=== PATIENT | male | born 1985 | race Caucasian/White ===

== ENCOUNTER 2017-01-26 04:29 | Inpatient (IN) ==
[2017-01-26] MEDS ORDERED: Haloperidol Lactate 5 MG/ML VIAL ONE (04:37)
[2017-01-26] MEDS ORDERED: Haloperidol Lactate 5 MG/ML VIAL IVP ONE (04:43)
[2017-01-26] MEDS ORDERED: *HR* LORazepam 2 MG/ML VIAL IVP ONE (04:45)
--- NOTE | 2017-01-26 04:46 | Emergency Department Note ---
Disposition Clinical Impression: Altered mental status Qualifiers: Altered mental status type: unspecified Qualified Code(s): R41.82 - Altered mental status, unspecified Disposition: Still a Patient Condition: Undetermined Forms: ED Satisfaction Letter Altered Mental Status HPI - General Chief Complaint: ED Altered Mental Status Stated Complaint: combative Time Seen by Provider: 01/26/17 04:36 Source: patient, EMS Mode of arrival: EMS Limitations: altered mental status Nursing Notes Reviewed: Yes Vital Signs Reviewed: Yes - History of Present Illness MD complaint: altered mental status, intoxication, other (combative) 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 Quantities were not discussed.), other ( Patient was reportedly unresponsive. EMS gave 4mg of narcan. Patient became agitated and "Very combative." ) Treatments prior to arrival: EMS treatment/medication (Narcan 4mg), other (accu check 124) Limitations: ROS unobtainable due to patients medical condition Past Medical History - Past Medical History Source: old records reviewed Medical history: Reports: non-contributory Psychiatric history: Reports: other - Social History Smoking Status: Unknown if ever smoked Alcohol use: Reports: unknown Drug use: Reports: opiates, other Physical Exam - General Limitations: altered mental status (agitated and combative) General appearance: alert, appears intoxicated, restraints present - Head Head exam: atraumatic, normocephalic, normal inspection - Eye Eye exam: Present: normal appearance, PERRL. Absent: scleral icterus, conjunctival injection, periorbital swelling - ENT ENT exam: mucous membranes dry - Neck Neck exam: Present: normal inspection, full ROM, trachea midline. Absent: tenderness - Chest Chest inspection: Present: normal inspection, symmetric chest wall rise - Respiratory Respiratory exam: Present: normal lung sounds bilaterally. Absent: respiratory distress - Cardiovascular Cardiovascular exam: Present: regular rate, normal rhythm, normal heart sounds - Abdominal Exam Abdominal exam: Present: soft, Non-Tender. Absent: tenderness, distention, guarding, rebound, rigidity, mass, pulsatile mass - Extremities Exam Extremities exam: Present: normal inspection, full ROM, normal capillary refill. Absent: pedal edema, joint swelling - Expanded Lower Extremity Exam Gait: not tested/not observed - Neurological Exam Neurological exam: Present: alert. Absent: oriented X3 (oriented to person and "Hospital") - Psychiatric Psychiatric exam: Present: agitated, anxious - Skin Skin exam: Present: warm, dry, intact, normal color Course Course Narrative: Patient was brought in by squad after being found unresponsive. It is unclear who called the squad. He was given 4 mg of Narcan and became very agitated and combative. He arrived with handcuffs in place and with two deputy sheriff k9 handler's deputies providing additional restraint. He is agitated and tachycardic but has normal blood pressure and normal oxygen saturation on room air. Patient reportedly took Xanax, gabapentin, and shot up heroin. It is unclear how much or at what time. He is mildly diaphoretic. Core temp is 99. Pupils are 4mm, slowly reactive. He is oriented to person and knows that he is in a hospital. He will answer some questions briefly. He episodically slurs. He was transferred to the ED cot and restraints were applied. He was given Haldol 10mg, ativan 2mg and Benadryl 50mg. Labs and Imaging studies were ordered. Case discussed with Dr. Méndez. He has had face to face time with the patient. - Reevaluation(s) Reevaluation #1: Patient resting quietly. HR 90, sats 98% on room air, BP normal. Time: 05:03 Reevaluation #2: Patient had transient snoring respirations then sat up and began fighting again. This pattern repeated several times. Discussed sedation + intubation with Dr. Méndez. He re-assessed the patient and recommends versed 2mg Q5min until no longer agitated. Patient is on monitor with O2 sat. Time: 05:24 Reevaluation #3: Discussed plan to CT head with Attending. He is in agreement. Patient taken to CT by his nurse and me. Sats remained above 93% on room air. Patient required an additional dose of versed due to agitation. He has had a total of 4mg so far. Time: 05:32 Additional Reevaluation(s): Time is 06:15 Patient care is being transferred to Dr. Méndez. Vital Signs Temperature 99.6 F 01/26/17 04:45 Pulse Rate 129 01/26/17 04:45 Respiratory Rate 24 01/26/17 04:45 Blood Pressure 152/67 01/26/17 04:45 O2 Sat by Pulse Oximetry 99 01/26/17 04:45 Temperature 99.6 F 01/26/17 05:08 Pulse Rate 129 01/26/17 05:08 Respiratory Rate 24 01/26/17 05:08 Blood Pressure 152/67 01/26/17 05:08 O2 Sat by Pulse Oximetry 97 01/26/17 05:08 Oxygen Delivery Oxygen Delivery Room Air Altered Mental Status - Medical Records Medical records reviewed: Yes I reviewed the patient's medical records. - Lab Data Lab results reviewed: Yes I reviewed the patient's lab results. Lab results narrative: Laboratory Last Values WBC 17.0 K/mcL (4.3-11.1) H 01/26/17 04:41 RBC 4.49 M/mcL (4.19-5.50) 01/26/17 04:41 Hgb 13.3 g/dL (12.9-16.9) 01/26/17 04:41 Hct 39.9 % (37.5-50.1) 01/26/17 04:41 MCV 88.9 fL (83.0-100.0) 01/26/17 04:41 MCH 29.6 pg (28.0-33.3) 01/26/17 04:41 MCHC 33.3 g/dL (31.6-35.5) 01/26/17 04:41 RDW 13.3 % (11.5-14.5) 01/26/17 04:41 Plt Count 331 K/mcL (140-400) 01/26/17 04:41 MPV 10.1 fL (9.4-12.4) 01/26/17 04:41 Immature Gran % 0.2 % (0-4) 01/26/17 04:41 Seg Neutrophils % 56.3 % 01/26/17 04:41 Lymphocytes % 32.8 % 01/26/17 04:41 Monocytes % 7.6 % 01/26/17 04:41 Eosinophils % 2.6 % 01/26/17 04:41 Basophils % 0.5 % 01/26/17 04:41 Neutrophils # 9.6 K/mcL (1.6-8.9) H 01/26/17 04:41 Lymphocytes # 5.6 K/mcL (0.6-4.6) H 01/26/17 04:41 Monocytes # 1.3 K/mcL (0.0-1.3) 01/26/17 04:41 Eosinophils # 0.4 K/mcL (0.0-0.6) 01/26/17 04:41 Basophils # 0.1 K/mcL (0.0-0.2) 01/26/17 04:41 Sodium 141 mEq/L (136-145) 01/26/17 04:41 Potassium 3.8 mEq/L (3.5-4.5) 01/26/17 04:41 Chloride 104 mEq/L (98-109) 01/26/17 04:41 Carbon Dioxide 25 mEq/L (19-29) 01/26/17 04:41 BUN 10 mg/dL (8-26) 01/26/17 04:41 Creatinine 0.87 mg/dL (0.72-1.25) 01/26/17 04:41 Est GFR ( Amer) > 60 (> 60) 01/26/17 04:41 Est GFR (Non-Af Amer) > 60 (> 60) 01/26/17 04:41 BUN/Creatinine Ratio 11 (6-26) 01/26/17 04:41 Glucose 105 mg/dL (70-99) H 01/26/17 04:41 Calculated Osmolality 291 (280-300) 01/26/17 04:41 Calcium 8.9 mg/dL (8.6-10.8) 01/26/17 04:41 Total Bilirubin 0.5 mg/dL (0.2-1.2) 01/26/17 04:41 Direct Bilirubin 0.1 mg/dL (0.0-0.5) 01/26/17 04:41 Indirect Bilirubin 0.4 mg/dL (0.0-1.2) 01/26/17 04:41 AST 23 Units/L (5-34) 01/26/17 04:41 ALT 18 Units/L (0-55) 01/26/17 04:41 Alkaline Phosphatase 74 Units/L (38-126) 01/26/17 04:41 Serum Total Protein 7.4 g/dL (6.0-8.3) 01/26/17 04:41 Albumin 3.5 g/dL (3.5-5.0) 01/26/17 04:41 Globulin 3.9 g/dL (2.4-3.5) H 01/26/17 04:41 Albumin/Globulin Ratio 0.9 (1.1-2.2) L 01/26/17 04:41 Urine Color Yellow (Yellow) 01/26/17 04:40 Urine Clarity Clear (Clear) 01/26/17 04:40 Urine pH 7.0 pH Units (5.0-8.0) 01/26/17 04:40 Ur Specific [place] 1.024 (1.010-1.025) 01/26/17 04:40 Urine Protein Negative mg/dL (Neg-Trace) 01/26/17 04:40 Urine Glucose (UA) Normal mg/dL (Normal) 01/26/17 04:40 Urine Ketones Negative mg/dL (Negative) 01/26/17 04:40 Urine Blood Negative (Negative) 01/26/17 04:40 Urine Nitrite Negative (Negative) 01/26/17 04:40 Urine Bilirubin Negative (Negative) 01/26/17 04:40 Urine Urobilinogen Normal mg/dL (Normal) 01/26/17 04:40 Ur Leukocyte Esterase Negative (Negative) 01/26/17 04:40 Salicylates < 5.0 mg/dL (15.0-30.0) L 01/26/17 04:41 Urine Opiates Screen Positive ng/mL (Ezoauo=572) H 01/26/17 04:40 Acetaminophen < 1.0 mcg/mL (10-30) L 01/26/17 04:41 Ur Barbiturates Screen Negative ng/mL (Qmwcyb=467) 01/26/17 04:40 Ur Phencyclidine Scrn Negative ng/mL (Cutoff=25) 01/26/17 04:40 Ur Amphetamines Screen Positive ng/mL (Mgjldi=4624) H 01/26/17 04:40 U Benzodiazepines Scrn Positive ng/mL (Cwbsnu=822) H 01/26/17 04:40 Urine Cocaine Screen Negative ng/mL (Cutoff= 300) 01/26/17 04:40 U Marijuana (THC) Screen Positive ng/mL (Cutoff = 50) H 01/26/17 04:40 Ethyl Alcohol < 10 mg/dL (0-10) 01/26/17 04:41 Result diagrams: 01/26/17 04:41 01/26/17 04:41 Lab Results 01/26/17 01/26/17 01/26/17 Range/Units 04:40 04:40 04:41 WBC 17.0 H (4.3-11.1) K/mcL RBC 4.49 (4.19-5.50) M/mcL Hgb 13.3 (12.9-16.9) g/dL Hct 39.9 (37.5-50.1) % MCV 88.9 (83.0-100.0) fL MCH 29.6 (28.0-33.3) pg MCHC 33.3 (31.6-35.5) g/dL RDW 13.3 (11.5-14.5) % Plt Count 331 (140-400) K/mcL MPV 10.1 (9.4-12.4) fL Immature Gran % 0.2 (0-4) % Seg Neutrophils % 56.3 % Lymphocytes % 32.8 % Monocytes % 7.6 % Eosinophils % 2.6 % Basophils % 0.5 % Neutrophils # 9.6 H (1.6-8.9) K/mcL Lymphocytes # 5.6 H (0.6-4.6) K/mcL Monocytes # 1.3 (0.0-1.3) K/mcL Eosinophils # 0.4 (0.0-0.6) K/mcL Basophils # 0.1 (0.0-0.2) K/mcL Sodium (136-145) mEq/L Potassium (3.5-4.5) mEq/L Chloride (98-109) mEq/L Carbon Dioxide (19-29) mEq/L BUN (8-26) mg/dL Creatinine (0.72-1.25) mg/dL Est GFR ( Amer) (> 60) Est GFR (Non-Af Amer) (> 60) BUN/Creatinine Ratio (6-26) Glucose (70-99) mg/dL Calculated Osmolality (280-300) Calcium (8.6-10.8) mg/dL Total Bilirubin (0.2-1.2) mg/dL Direct Bilirubin (0.0-0.5) mg/dL Indirect Bilirubin (0.0-1.2) mg/dL AST (5-34) Units/L ALT (0-55) Units/L Alkaline Phosphatase (38-126) Units/L Serum Total Protein (6.0-8.3) g/dL Albumin (3.5-5.0) g/dL Globulin (2.4-3.5) g/dL Albumin/Globulin Ratio (1.1-2.2) Urine Color Yellow (Yellow) Urine Clarity Clear (Clear) Urine pH 7.0 (5.0-8.0) pH Units Ur Specific [place] 1.024 (1.010-1.025) Urine Protein Negative (Neg-Trace) mg/dL Urine Glucose (UA) Normal (Normal) mg/dL Urine Ketones Negative (Negative) mg/dL Urine Blood Negative (Negative) Urine Nitrite Negative (Negative) Urine Bilirubin Negative (Negative) Urine Urobilinogen Normal (Normal) mg/dL Ur Leukocyte Esterase Negative (Negative) Salicylates (15.0-30.0) mg/dL Urine Opiates Screen Positive H (Rlxttn=397) ng/mL Acetaminophen (10-30) mcg/mL Ur Barbiturates Screen Negative (Lsgllv=543) ng/mL Ur Phencyclidine Scrn Negative (Cutoff=25) ng/mL Ur Amphetamines Screen Positive H (Ypljqn=6661) ng/mL U Benzodiazepines Scrn Positive H (Ukislz=946) ng/mL Urine Cocaine Screen Negative (Cutoff= 300) ng/mL U Marijuana (THC) Screen Positive H (Cutoff = 50) ng/mL Ethyl Alcohol (0-10) mg/dL 01/26/17 Range/Units 04:41 WBC (4.3-11.1) K/mcL RBC (4.19-5.50) M/mcL Hgb (12.9-16.9) g/dL Hct (37.5-50.1) % MCV (83.0-100.0) fL MCH (28.0-33.3) pg MCHC (31.6-35.5) g/dL RDW (11.5-14.5) % Plt Count (140-400) K/mcL MPV (9.4-12.4) fL Immature Gran % (0-4) % Seg Neutrophils % % Lymphocytes % % Monocytes % % Eosinophils % % Basophils % % Neutrophils # (1.6-8.9) K/mcL Lymphocytes # (0.6-4.6) K/mcL Monocytes # (0.0-1.3) K/mcL Eosinophils # (0.0-0.6) K/mcL Basophils # (0.0-0.2) K/mcL Sodium 141 (136-145) mEq/L Potassium 3.8 (3.5-4.5) mEq/L Chloride 104 (98-109) mEq/L Carbon Dioxide 25 (19-29) mEq/L BUN 10 (8-26) mg/dL Creatinine 0.87 (0.72-1.25) mg/dL Est GFR ( Amer) > 60 (> 60) Est GFR (Non-Af Amer) > 60 (> 60) BUN/Creatinine Ratio 11 (6-26) Glucose 105 H (70-99) mg/dL Calculated Osmolality 291 (280-300) Calcium 8.9 (8.6-10.8) mg/dL Total Bilirubin 0.5 (0.2-1.2) mg/dL Direct Bilirubin 0.1 (0.0-0.5) mg/dL Indirect Bilirubin 0.4 (0.0-1.2) mg/dL AST 23 (5-34) Units/L ALT 18 (0-55) Units/L Alkaline Phosphatase 74 (38-126) Units/L Serum Total Protein 7.4 (6.0-8.3) g/dL Albumin 3.5 (3.5-5.0) g/dL Globulin 3.9 H (2.4-3.5) g/dL Albumin/Globulin Ratio 0.9 L (1.1-2.2) Urine Color (Yellow) Urine Clarity (Clear) Urine pH (5.0-8.0) pH Units Ur Specific [place] (1.010-1.025) Urine Protein (Neg-Trace) mg/dL Urine Glucose (UA) (Normal) mg/dL Urine Ketones (Negative) mg/dL Urine Blood (Negative) Urine Nitrite (Negative) Urine Bilirubin (Negative) Urine Urobilinogen (Normal) mg/dL Ur Leukocyte Esterase (Negative) Salicylates < 5.0 L (15.0-30.0) mg/dL Urine Opiates Screen (Kbjhhb=082) ng/mL Acetaminophen < 1.0 L (10-30) mcg/mL Ur Barbiturates Screen (Erknvo=158) ng/mL Ur Phencyclidine Scrn (Cutoff=25) ng/mL Ur Amphetamines Screen (Lzmfcy=1465) ng/mL U Benzodiazepines Scrn (Boficc=927) ng/mL Urine Cocaine Screen (Cutoff= 300) ng/mL U Marijuana (THC) Screen (Cutoff = 50) ng/mL Ethyl Alcohol < 10 (0-10) mg/dL - Radiology Data Radiology results reviewed: Yes I reviewed the patient's radiology results. - EKG Data EKG attestation: Yes I reviewed and interpreted this EKG. EKG shows normal: sinus rhythm Rate: tachycardia Rhythm: NSR When compared to previous EKG there are: previous EKG unavailable Interpretation: nonspecific ST-T wave changes TPA Checklist - LKW: 3-4.5 hrs Add. Warnings/Precautions Patient/family understanding: The patient/family members have been counseled and understood the risk, benefit , and alternatives of treatment. [email or web address] - Sydni Situation: Demographics, MOA Background: Presenting Complaint, Relevant PMH, Meds, & Allergies Assessment: Vital Signs, Course and respsone to treatment, Exam Concerns, Pertinant Lab Results Recommendation: Barrier(s) to disposition, Recommendation based on pending studies, treatments, or consults S.[email or web address].Samantha Report Given to: Dr. Honey Troy Repor Time: 06:15
[2017-01-26] MEDS ORDERED: *HR* LORazepam 2 MG/ML VIAL ONE (04:47)
[2017-01-26 04:50] LABS: Basophils # 0.1 K/mcL (0.0-0.2); Basophils % 0.5 %; Eosinophils # 0.4 K/mcL (0.0-0.6); Eosinophils % 2.6 %; Hematocrit 39.9 % (37.5-50.1); Hemoglobin 13.3 g/dL (12.9-16.9); Immature Granulocytes % 0.2 % (0-4); Lymphocytes # 5.6 K/mcL (0.6-4.6); Lymphocytes % 32.8 %; Mean Corpuscular HGB Conc 33.3 g/dL (31.6-35.5); Mean Corpuscular Hemoglobin 29.6 pg (28.0-33.3); Mean Corpuscular Volume 88.9 fL (83.0-100.0); Mean Platelet Volume 10.1 fL (9.4-12.4); Monocytes # 1.3 K/mcL (0.0-1.3); Monocytes % 7.6 %; Neutrophils # 9.6 K/mcL (1.6-8.9); Platelet Count 331 K/mcL (140-400); Red Blood Count 4.49 M/mcL (4.19-5.50); Red Cell Distribution Width 13.3 % (11.5-14.5); Segmented Neutrophils % 56.3 %
[2017-01-26 05:07] LABS: Bilirubin,Urine Negative (Negative); Blood,Urine Negative (Negative); Clarity,Urine Clear (Clear); Color,Urine Yellow (Yellow); Glucose,Urine (UA) Normal (Normal); Ketones,Urine Negative (Negative); Leukocyte Esterase,Urine Negative (Negative); Nitrite,Urine Negative (Negative); Protein,Urine Negative (Neg-Trace); Specific Gravity,Urine 1.024 (1.010-1.025); Urobilinogen,Urine Normal (Normal)
[2017-01-26 05:09] LABS: Alanine Aminotransferase 18 Units/L (0-55); Albumin 3.5 g/dL (3.5-5.0); Albumin/Globulin Ratio 0.9 (1.1-2.2); Alkaline Phosphatase 74 Units/L (38-126); Aspartate Amino Transferase 23 Units/L (5-34); BUN/Creatinine Ratio 11 (6-26); Bilirubin,Direct 0.1 mg/dL (0.0-0.5); Bilirubin,Indirect 0.4 mg/dL (0.0-1.2); Bilirubin,Total 0.5 mg/dL (0.2-1.2); Blood Urea Nitrogen 10 mg/dL (8-26); Calcium 8.9 mg/dL (8.6-10.8); Carbon Dioxide 25 mEq/L (19-29); Chloride 104 mEq/L (98-109); Globulin 3.9 g/dL (2.4-3.5); Glucose 105 mg/dL (70-99); Osmolality,Calculated 291 (280-300); Potassium 3.8 mEq/L (3.5-4.5); Sodium 141 mEq/L (136-145); Total Protein 7.4 g/dL (6.0-8.3); eGFR For African Americans > 60 (> 60); eGFR For Non-African Americans > 60 (> 60)
[2017-01-26 05:10] LABS: Acetaminophen < 1.0 mcg/mL (10-30); Ethanol < 10 mg/dL (0-10); Salicylate < 5.0 mg/dL (15.0-30.0)
[2017-01-26 05:12] LABS: Amphetamine Screen,Urine Positive ng/mL (Cutoff=1000); Barbiturate Screen,Urine Negative ng/mL (Cutoff=200); Benzodiazepines Screen,Urine Positive ng/mL (Cutoff=200); Cannabinoid Screen,Urine Positive ng/mL (Cutoff = 50); Cocaine Screen,Urine Negative ng/mL (Cutoff= 300); Opiate Screen,Urine Positive ng/mL (Cutoff=300); Phencyclidine Screen,Urine Negative ng/mL (Cutoff=25)
[2017-01-26] MEDS ORDERED: *HR* Midazolam HCl 2 MG/2 ML VIAL IVP ONE ×4 (05:23→07:29)
[2017-01-26] MEDS ORDERED: *HR* Midazolam HCl 2 MG/2 ML VIAL ONE (05:23)
[2017-01-26] MEDS: Haloperidol Lactate 5 MG/ML VIAL IVP ONE ×2 (05:35→06:00)
--- NOTE | 2017-01-26 06:31 | Emergency Department Note ---
START Narrative - START START: I examined this patient and my medical decision-making was reviewed with the Resident Physician. I agree with the documented findings, disposition and treatment plan as described except to the extent set forth below. Patient found down unresponsive, report given to medics that he had taken Xanax , heroin and gabapentin. Minimal response 4 mg of Narcan in route by the paramedics. Arrives here tachycardic, normotensive with mild temperature elevation at 99.6, normal pupils, mild diaphoresis. Agitated. ED workup is been negative, other than drug screen positive for numerous substances including amphetamine. Patient is been given multiple doses of benzodiazepines in attempts to control his agitation. He has continued to oxygenate and ventilate adequately. We have reassessed him every few minutes to assure that he continues protect his airway. At this point, he is going to be admitted to the ICU for continued monitoring. Critical care time: I was directly and primarily involve the care of this patient for 40 minutes excluding procedures.
[2017-01-26] MEDS ORDERED: Propofol 500 MG/50 ML INFUS..BTL ONE (07:04)
[2017-01-26] MEDS ORDERED: 0.9 % Sodium Chloride 1,000 ML ONE (07:08)
[2017-01-26] MEDS ORDERED: Lacri-Lube 3.5 GM TUBE BOTH EYES PRN (07:18)
[2017-01-26] MEDS ORDERED: *HR* Midazolam HCl 5 MG/5 ML VIAL IVP ONE (07:45)
[2017-01-26 08:00] LABS: ABG Base Excess 5 mEq/L (-2 to 3); ABG HCO3 31 mEq/L (21-27); ABG Oxygen Saturation 100 % (95-98); ABG PCO2 56 mmHg (35-45); ABG PH 7.36 pH Units (7.32-7.45); ABG PO2 344 mmHg (85-104); ABG TCO2 33 mEq/L (20-26); Blood Gas Modality ASSIST CONTROL; Blood Gas PEEP 5 cm H2O; Blood Gas Respiration Rate 14; Blood Gas VT 500 cc
[2017-01-26] MEDS ORDERED: *HR* Etomidate 40 MG/20 ML VIAL IVP ONE (08:00)
[2017-01-26] MEDS ORDERED: *HR* Midazolam HCl 2 MG/2 ML VIAL IV ONE (08:00)
[2017-01-26] MEDS ORDERED: *HR* Rocuronium Bromide 100 MG/10 ML VIAL IVC ONE (08:00)
[2017-01-26] MEDS: FentaNYL (PF) 1,000 MCG in 0.9 % Sodium Chloride 80 ML IVC SCH ×2 (08:00→16:12)
[2017-01-26] MEDS: Chlorhexidine Rinse 15 ML MOUTHWASH MM SCH ×2 (08:28→20:44)
[2017-01-26] MEDS: Lacri-Lube 3.5 GM TUBE BOTH EYES SCH ×4 (08:28→20:45)
--- NOTE | 2017-01-26 08:56 | Pulmonology History & Physical ---
<Travis Tidwell - Last Filed: 01/26/17 13:24> Date of Encounter: 01/26/17 Time of Encounter: 08:00 Assessment and Plan (1) Acute respiratory failure Current visit: Yes Status: Acute - With hypoxia (reported desaturation to 80s on 6L oxygen) and hypercapnia ( pCO2 56). Intubated in ED. - Likely secondary to current acute encephalopathy in the setting of sedation use for his agitation and combative behaviors. - CXR found no acute cardiopulmonary abnormality. - Intubated and currently on ventilation support - Continue to monitor closely in ICU. Qualifiers: Respiratory failure complication: hypoxia and hypercapnia Qualified Code(s) : J96.01 - Acute respiratory failure with hypoxia; J96.02 - Acute respiratory failure with hypercapnia; J96.02 - Acute respiratory failure with hypercapnia; J96.02 - Acute respiratory failure with hypercapnia (2) Acute encephalopathy Current visit: Yes Status: Acute - Initially unresponsive and became agitated and combative after Narcan. - Likely secondary to polysubstance abuse/overdose. - CT head found no acute intracranial abnormality. - Give multivitamin supplement (banana bag). - Continue current sedation regimen. - Continue hydration with IV fluid. - Continue to monitor closely in ICU. (3) Polysubstance abuse Current visit: Yes Status: Acute - Patient reportedly took Xanax, gabapentin and IV heroin. Urine drug screening positive for opiates, amphetamines, benzodiazepam and marijuana. History of Present Illness Chief complaint: Altered mental status HPI: Mr. Pantoja is a 31 year old male without known PMH who was sent to [facility] ED for altered mental status. In ED, patient was noted to be agitated and combative with tachycardia. Multiple rounds of sedatives were given but patient continued to have episodes of agitation and fighting behavior. Patient was noted to have O2 sat drop to mid 80s on 6L oxygen and eventually intubated in ED. Patient was seen and examined this morning. Patient is intubated and sedated and no family member at bedside. Therefore much of history was obtained from review of medical records. Per ED note, patient was found to be unresponsive initially but became very agitative and combative after squad gave 4 mg of Narcan. 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 Patient reportedly took Xanax, gabapentin and IV heroin. Urine drug screening positive for opiates, amphetamines, benzodiazepam and marijuana. Past Med Surg Social Fam HX - Past Medical History Medical history: non-contributory Psychiatric history: other - Social History Smoking Status: Unknown if ever smoked Alcohol use: unknown Drug use: opiates, other Medications and Allergies Unable To Obtain [Unable to Obtain] 01/26/17 [History] 3 Allergy/AdvReac Type Severity Reaction Status Date / Time Unable to Assess Allergy Unverified 01/26/17 06:27 ROS unobtainable: due to endotracheal tube Physical Examination Vital Signs: Vital Signs, Last 4 Hours Temp Pulse Resp BP Pulse Ox 01/26/17 08:16 22 100 01/26/17 08:00 98.1 F 106 14 151/125 100 01/26/17 07:15 106 14 114/71 98 01/26/17 07:08 110 14 110/75 90 01/26/17 07:04 14 90 01/26/17 07:01 116 126/87 90 01/26/17 06:51 123 168/78 85 General appearance: comatose Eyes: nonicteric ENT: other (Intubated) Neck: supple Effort: normal Inspection: normal Auscultation: bilateral: clear Cardiovascular: other (Tachycardia) Gastrointestinal: hypoactive bowel sounds, soft Integumentary: other (Suspected track valdes noted on bilateral lower extremities ) Extremities: no cyanosis, no edema Musculoskeletal: no deformities unable to assess due to mental status Results - Laboratory Findings CBC and BMP: 01/26/17 04:41 01/26/17 04:41 ABG ABG pH 7.36 pH Units (7.32-7.45) 01/26/17 07:55 ABG pCO2 56 mmHg (35-45) H 01/26/17 07:55 ABG pO2 344 mmHg (85-104) H 01/26/17 07:55 ABG O2 Saturation 100 % (95-98) H 01/26/17 07:55 Abnormal lab findings: Abnormal lab results WBC 17.0 K/mcL (4.3-11.1) H 01/26/17 04:41 Neutrophils # 9.6 K/mcL (1.6-8.9) H 01/26/17 04:41 Lymphocytes # 5.6 K/mcL (0.6-4.6) H 01/26/17 04:41 ABG pCO2 56 mmHg (35-45) H 01/26/17 07:55 ABG pO2 344 mmHg (85-104) H 01/26/17 07:55 ABG HCO3 31 mEq/L (21-27) H 01/26/17 07:55 ABG Total CO2 33 mEq/L (20-26) H 01/26/17 07:55 ABG O2 Saturation 100 % (95-98) H 01/26/17 07:55 ABG Base Excess 5 mEq/L (-2 to 3) H 01/26/17 07:55 Glucose 105 mg/dL (70-99) H 01/26/17 04:41 POC Glucose 122 (58-89) H 01/26/17 07:39 Globulin 3.9 g/dL (2.4-3.5) H 01/26/17 04:41 Albumin/Globulin Ratio 0.9 (1.1-2.2) L 01/26/17 04:41 Salicylates < 5.0 mg/dL (15.0-30.0) L 01/26/17 04:41 Urine Opiates Screen Positive ng/mL (Twefga=685) H 01/26/17 04:40 Acetaminophen < 1.0 mcg/mL (10-30) L 01/26/17 04:41 Ur Amphetamines Screen Positive ng/mL (Vuescv=5874) H 01/26/17 04:40 U Benzodiazepines Scrn Positive ng/mL (Tvsqqj=865) H 01/26/17 04:40 U Marijuana (THC) Screen Positive ng/mL (Cutoff = 50) H 01/26/17 04:40 - Diagnostic Findings Chest x-ray: report reviewed, image reviewed <Tahir Joseph - Last Filed: 01/26/17 16:22> Date of Encounter: 01/26/17 History of Present Illness HPI: Mr. Pantoja is a 31 year old male All Systems: A 10-system review of systems was performed and is negative for pertinent findings except as documented above in the HPI. Physical Examination Vital Signs: Vital Signs, Last 4 Hours Temp Pulse Resp BP Pulse Ox 01/26/17 10:06 16 100 01/26/17 10:00 101 15 110/78 100 01/26/17 09:00 106 15 104/68 100 01/26/17 08:16 22 100 01/26/17 08:00 98.1 F 101 14 151/125 100 Results - Laboratory Findings CBC and BMP: 01/26/17 04:41 01/26/17 04:41 ABG ABG pH 7.36 pH Units (7.32-7.45) 01/26/17 07:55 ABG pCO2 56 mmHg (35-45) H 01/26/17 07:55 ABG pO2 344 mmHg (85-104) H 01/26/17 07:55 ABG O2 Saturation 100 % (95-98) H 01/26/17 07:55 Abnormal lab findings: Abnormal lab results WBC 17.0 K/mcL (4.3-11.1) H 01/26/17 04:41 Neutrophils # 9.6 K/mcL (1.6-8.9) H 01/26/17 04:41 Lymphocytes # 5.6 K/mcL (0.6-4.6) H 01/26/17 04:41 ABG pCO2 56 mmHg (35-45) H 01/26/17 07:55 ABG pO2 344 mmHg (85-104) H 01/26/17 07:55 ABG HCO3 31 mEq/L (21-27) H 01/26/17 07:55 ABG Total CO2 33 mEq/L (20-26) H 01/26/17 07:55 ABG O2 Saturation 100 % (95-98) H 01/26/17 07:55 ABG Base Excess 5 mEq/L (-2 to 3) H 01/26/17 07:55 Glucose 105 mg/dL (70-99) H 01/26/17 04:41 POC Glucose 122 (58-89) H 01/26/17 07:39 Globulin 3.9 g/dL (2.4-3.5) H 01/26/17 04:41 Albumin/Globulin Ratio 0.9 (1.1-2.2) L 01/26/17 04:41 Salicylates < 5.0 mg/dL (15.0-30.0) L 01/26/17 04:41 Urine Opiates Screen Positive ng/mL (Txfnbe=418) H 01/26/17 04:40 Acetaminophen < 1.0 mcg/mL (10-30) L 12/15/17 04:41 Ur Amphetamines Screen Positive ng/mL (Sgdnsg=2359) H 01/26/17 04:40 U Benzodiazepines Scrn Positive ng/mL (Inahym=231) H 01/26/17 04:40 U Marijuana (THC) Screen Positive ng/mL (Cutoff = 50) H 01/26/17 04:40 - Attending Attestation I examined this patient and my medical decision-making was reviewed with the Resident Physician. I agree with the documented findings, disposition and treatment plan as described except to the extent set forth below. I was called by emergency room physician to evaluate this patient in the emergency room. When I arrived his condition apparently deteriorated to the point that he needed to be on invasive mechanical ventilation. Patient seen and examined. Labs, radiology, chart personally reviewed. 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 Patient will be on sedation and multivitamins. Pulmonary: Acceptable oxygenation and ventilation. Patient requires invasive mechanical ventilation for his mental status change and hypoxia which could be from overdose Cardiovascular: stable, however he could deteriorate due to significant amount of the substances he abuse. GI: Nutrition per dietary and GI prophylaxis per routine Heme: DVT prophylaxis per routine ID: There is evidence of possible cellulitis in the left hand from what I suspect the site of injection and empirically will treat with antibiotics. Renal; urine out put and renal funtion reviewed Endorcine: blood glucose is monitored Lines: all lines checked and no evidence of infections Skin: skin care to prevent pressure ulcers per nursing routine care Family is not available and limited information. I spent 40 min of Critical Care time with this patient. It involved decision making of high complexity to assess, manipulate, and support vital organ system failure and/or to prevent further life threatening deterioration of the patient' s condition. The time involved in the performance of separately reportable procedures was not counted toward critical care time.
[2017-01-26] MEDS ORDERED: MVI, adult with vitamin K 10 ML in 0.9 % Sodium Chloride 1,000 ML IVC ONE (13:51)
[2017-01-26] MEDS: 0.9 % Sodium Chloride 1,000 ML IVC SCH (15:23)
[2017-01-26] MEDS: ceFAZolin 2,000 MG in Water for inj. (sterile) 20 ML IVP SCH (16:12)
--- NOTE | 2017-01-26 16:52 | Electrocardiograph Report ---
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
[2017-01-27] MEDS: 0.9 % Sodium Chloride 1,000 ML IVC SCH ×3 (00:19→17:45)
[2017-01-27] MEDS: Lacri-Lube 3.5 GM TUBE BOTH EYES SCH ×3 (00:19→07:52)
[2017-01-27 00:22] LABS: Hematocrit 35.9 % (37.5-50.1); Hemoglobin 11.8 g/dL (12.9-16.9)
[2017-01-27] MEDS ORDERED: Pantoprazole 80 MG in Water for inj. (sterile) 10 ML IVP ONE (00:51)
[2017-01-27] MEDS: CeFAZolin Premix DUPLEX 2,000 MG/50 ML BAG IVPB SCH ×3 (01:06→16:42)
[2017-01-27 04:01] LABS: ABG Base Excess 6 mEq/L (-2 to 3); ABG HCO3 32 mEq/L (21-27); ABG Oxygen Saturation 98 % (95-98); ABG PCO2 50 mmHg (35-45); ABG PH 7.41 pH Units (7.32-7.45); ABG PO2 105 mmHg (85-104); ABG TCO2 33 mEq/L (20-26); Blood Gas Modality VC; Blood Gas PEEP 5 cm H2O; Blood Gas Respiration Rate 14; Blood Gas VT 500 cc
[2017-01-27] MEDS: FentaNYL (PF) 1,000 MCG in 0.9 % Sodium Chloride 80 ML IVC SCH (05:10)
[2017-01-27] MEDS ORDERED: Pantoprazole 40 MG VIAL IVP SCH ×3 (06:00→18:00)
[2017-01-27 06:19] LABS: Alanine Aminotransferase 12 Units/L (0-55); Albumin 2.8 g/dL (3.5-5.0); Albumin/Globulin Ratio 0.9 (1.1-2.2); Alkaline Phosphatase 68 Units/L (38-126); Aspartate Amino Transferase 19 Units/L (5-34); BUN/Creatinine Ratio 9 (6-26); Bilirubin,Total 0.4 mg/dL (0.2-1.2); Blood Urea Nitrogen 7 mg/dL (8-26); Calcium 8.2 mg/dL (8.6-10.8); Carbon Dioxide 28 mEq/L (19-29); Chloride 106 mEq/L (98-109); Globulin 3.1 g/dL (2.4-3.5); Glucose 88 mg/dL (70-99); Magnesium 1.8 mg/dL (1.6-2.6); Osmolality,Calculated 291 (280-300); Phosphorous 3.6 mg/dL (2.3-4.7); Potassium 3.6 mEq/L (3.5-4.5); Sodium 142 mEq/L (136-145); eGFR For African Americans > 60 (> 60); eGFR For Non-African Americans > 60 (> 60)
[2017-01-27 06:20] LABS: Total Protein 5.9 g/dL (6.0-8.3)
[2017-01-27 06:34] LABS: Basophils # 0.1 K/mcL (0.0-0.2); Basophils % 0.3 %; Eosinophils # 0.2 K/mcL (0.0-0.6); Eosinophils % 1.5 %; Hematocrit 39.4 % (37.5-50.1); Hemoglobin 12.7 g/dL (12.9-16.9); Immature Granulocytes % 0.4 % (0-4); Lymphocytes # 1.7 K/mcL (0.6-4.6); Mean Corpuscular HGB Conc 32.2 g/dL (31.6-35.5); Mean Corpuscular Hemoglobin 29.1 pg (28.0-33.3); Mean Corpuscular Volume 90.2 fL (83.0-100.0); Mean Platelet Volume 10.8 fL (9.4-12.4); Monocytes # 0.6 K/mcL (0.0-1.3); Monocytes % 4.3 %; Neutrophils # 11.7 K/mcL (1.6-8.9); Platelet Count 261 K/mcL (140-400); Red Blood Count 4.37 M/mcL (4.19-5.50); Red Cell Distribution Width 13.6 % (11.5-14.5); Segmented Neutrophils % 81.5 %
[2017-01-27] MEDS: Chlorhexidine Rinse 15 ML MOUTHWASH MM SCH (07:51)
--- NOTE | 2017-01-27 08:35 | Pulmonology Progress Note ---
<MahadjosephDorinda leong - Last Filed: 01/27/17 10:09> Date of Encounter: 01/27/17 Time of Encounter: 08:30 Assessment and Plan (1) Acute respiratory failure Current Visit: Yes Status: Acute -With hypoxia (reported desaturation to 80s on 6L oxygen) and hypercapnia (pCO2 56) on 01/26/2017. Intubated in ED. - Likely secondary to current acute encephalopathy in the setting of sedation use for his agitation and combative behaviors. - CXR found no acute cardiopulmonary abnormality. - Patient extubated this morning on 01/27/2017. -Transfer to the floor. Qualifiers: Respiratory failure complication: hypoxia and hypercapnia Qualified Code(s) : J96.01 - Acute respiratory failure with hypoxia; J96.02 - Acute respiratory failure with hypercapnia; J96.02 - Acute respiratory failure with hypercapnia; J96.02 - Acute respiratory failure with hypercapnia (2) Acute encephalopathy Current Visit: Yes Status: Acute - Initially unresponsive and became agitated and combative after Narcan in ED. - Likely secondary to polysubstance abuse/overdose. - CT head found no acute intracranial abnormality. - Multivitamin supplement (banana bag) given in ED. - Patient's mental status has improved. Patient doing well s/p extubation this morning. -Transfer to medical bed. (3) Polysubstance abuse Current Visit: Yes Status: Acute - Patient reportedly took Xanax, gabapentin and IV heroin. Urine drug screening positive for opiates, amphetamines, benzodiazepam and marijuana. Subjective Principal diagnosis: Acute respiratory failure/Overdose Interval history: Mr. Pantoja did well overnight, no acute events. He was extubated this morning without complication after successful spontaneous breathing trial. He feels much better. He denies chest pain, SOB, abdominal pain. Denies any previous attempts at addiction recovery. Objective PUL Vital signs: Last Vital Signs Temp 99.0 F 01/27/17 07:38 Pulse 93 01/27/17 08:05 Resp 15 01/27/17 08:10 BP 138/85 01/27/17 08:05 Pulse Ox 97 01/27/17 08:05 General appearance: no acute distress Eyes: nonicteric ENT: oropharynx moist Neck: supple Effort: normal Auscultation: bilateral: clear Cardiovascular: regular rate and rhythm Gastrointestinal: normoactive bowel sounds, soft, non-tender, non-distended Integumentary: normal Extremities: no cyanosis, no edema Musculoskeletal: no deformities normal mental status, non-focal exam Ventilator Settings Ventilator Settings: Ventilator Settings, Last 8 Hours Ventilator Mode CPAP Ventilator Mode VC+ Ventilator Mode VC+ Ventilator Mode VC+ Ventilator Mode VC+ Ventilator Mode VC+ Ventilator Mode VC+ Ventilator Mode VC+ Ventilator Mode VC+ Ventilator Mode VC+ Ventilator Mode VC+ Ventilator Tidal Volume 500 Setting Ventilator Tidal Volume 500 Setting Ventilator Tidal Volume 500 Setting Ventilator Tidal Volume 500 Setting Ventilator Tidal Volume 500 Setting Ventilator Tidal Volume 500 Setting Ventilator Tidal Volume 500 Setting Ventilator Tidal Volume 500 Setting Ventilator Tidal Volume 500 Setting Ventilator Tidal Volume 500 Setting Ventilator Respiratory Rate 14 Setting Ventilator Respiratory Rate 14 Setting Ventilator Respiratory Rate 14 Setting Ventilator Respiratory Rate 14 Setting Ventilator Respiratory Rate 14 Setting Ventilator Respiratory Rate 14 Setting Ventilator Respiratory Rate 14 Setting Ventilator Respiratory Rate 14 Setting Ventilator Respiratory Rate 14 Setting Ventilator Respiratory Rate 14 Setting Actual Respiratory Rate 17 Actual Respiratory Rate 18 Actual Respiratory Rate 16 Actual Respiratory Rate 16 Actual Respiratory Rate 15 Actual Respiratory Rate 15 Actual Respiratory Rate 16 Actual Respiratory Rate 15 Actual Respiratory Rate 15 Actual Respiratory Rate 15 Positive End Expiratory 5 Pressure Positive End Expiratory 5 Pressure Positive End Expiratory 5 Pressure Positive End Expiratory 5 Pressure Positive End Expiratory 5 Pressure Positive End Expiratory 5 Pressure Positive End Expiratory 5 Pressure Positive End Expiratory 5 Pressure Positive End Expiratory 5 Pressure Positive End Expiratory 5 Pressure Positive End Expiratory 5 Pressure Peak Inspiratory Airway 10 Pressure Peak Inspiratory Airway 16 Pressure Peak Inspiratory Airway 19 Pressure Peak Inspiratory Airway 19 Pressure Peak Inspiratory Airway 19 Pressure Peak Inspiratory Airway 17 Pressure Peak Inspiratory Airway 18 Pressure Peak Inspiratory Airway 18 Pressure Peak Inspiratory Airway 16 Pressure Peak Inspiratory Airway 18 Pressure Results - Laboratory Findings CBC and BMP: 01/27/17 05:31 01/27/17 05:31 ABG ABG pH 7.41 pH Units (7.32-7.45) 01/27/17 03:59 ABG pCO2 50 mmHg (35-45) H 01/27/17 03:59 ABG pO2 105 mmHg (85-104) H 01/27/17 03:59 ABG O2 Saturation 98 % (95-98) 01/27/17 03:59 Abnormal lab findings: Abnormal lab results WBC 14.3 K/mcL (4.3-11.1) H 01/27/17 05:31 Hgb 12.7 g/dL (12.9-16.9) L 01/27/17 05:31 Neutrophils # 11.7 K/mcL (1.6-8.9) H 01/27/17 05:31 ABG pCO2 50 mmHg (35-45) H 01/27/17 03:59 ABG pO2 105 mmHg (85-104) H 01/27/17 03:59 ABG HCO3 32 mEq/L (21-27) H 01/27/17 03:59 ABG Total CO2 33 mEq/L (20-26) H 01/27/17 03:59 ABG Base Excess 6 mEq/L (-2 to 3) H 01/27/17 03:59 BUN 7 mg/dL (8-26) L 01/27/17 05:31 POC Glucose 122 (58-89) H 01/26/17 07:39 Calcium 8.2 mg/dL (8.6-10.8) L 01/27/17 05:31 Serum Total Protein 5.9 g/dL (6.0-8.3) L D 01/27/17 05:31 Albumin 2.8 g/dL (3.5-5.0) L 01/27/17 05:31 Albumin/Globulin Ratio 0.9 (1.1-2.2) L 01/27/17 05:31 Salicylates < 5.0 mg/dL (15.0-30.0) L 01/26/17 04:41 Urine Opiates Screen Positive ng/mL (Xrvurx=431) H 01/26/17 04:40 Acetaminophen < 1.0 mcg/mL (10-30) L 01/26/17 04:41 Ur Amphetamines Screen Positive ng/mL (Fecedq=7423) H 01/26/17 04:40 U Benzodiazepines Scrn Positive ng/mL (Qzagsc=312) H 01/26/17 04:40 U Marijuana (THC) Screen Positive ng/mL (Cutoff = 50) H 01/26/17 04:40 - Clinical Findings Intake & Output: Intake & Output 01/26/17 01/27/17 01/27/17 23:59 07:59 15:59 Intake Total 2330 / 2330 1487.6 / 1487.6 50 / 50 Output Total 400 / 400 675 / 675 Balance 1930 / 1930 812.6 / 812.6 50 / 50 Weight 71.7 kg - VTE Documentation of Mechanical Device: Intermittent pneumatic compression device Consult Discharge Plan - Plan Referrals: NONE,PCP [Primary Care Provider] - <Tahir Joseph M - Last Filed: 01/27/17 11:04> Date of Encounter: 01/27/17 Objective PUL Vital signs: Last Vital Signs Temp 99.0 F 01/27/17 07:38 Pulse 93 01/27/17 08:05 Resp 15 01/27/17 08:10 BP 138/85 01/27/17 08:05 Pulse Ox 97 01/27/17 08:05 Ventilator Settings Ventilator Settings: Ventilator Settings, Last 8 Hours Ventilator Mode CPAP Ventilator Mode VC+ Ventilator Mode VC+ Ventilator Mode VC+ Ventilator Mode VC+ Ventilator Mode VC+ Ventilator Mode VC+ Ventilator Tidal Volume 500 Setting Ventilator Tidal Volume 500 Setting Ventilator Tidal Volume 500 Setting Ventilator Tidal Volume 500 Setting Ventilator Tidal Volume 500 Setting Ventilator Tidal Volume 500 Setting Ventilator Respiratory Rate 14 Setting Ventilator Respiratory Rate 14 Setting Ventilator Respiratory Rate 14 Setting Ventilator Respiratory Rate 14 Setting Ventilator Respiratory Rate 14 Setting Ventilator Respiratory Rate 14 Setting Actual Respiratory Rate 17 Actual Respiratory Rate 18 Actual Respiratory Rate 16 Actual Respiratory Rate 16 Actual Respiratory Rate 15 Actual Respiratory Rate 15 Positive End Expiratory 5 Pressure Positive End Expiratory 5 Pressure Positive End Expiratory 5 Pressure Positive End Expiratory 5 Pressure Positive End Expiratory 5 Pressure Positive End Expiratory 5 Pressure Positive End Expiratory 5 Pressure Peak Inspiratory Airway 10 Pressure Peak Inspiratory Airway 16 Pressure Peak Inspiratory Airway 19 Pressure Peak Inspiratory Airway 19 Pressure Peak Inspiratory Airway 19 Pressure Peak Inspiratory Airway 17 Pressure Results - Laboratory Findings CBC and BMP: 01/27/17 05:31 01/27/17 05:31 ABG ABG pH 7.41 pH Units (7.32-7.45) 01/27/17 03:59 ABG pCO2 50 mmHg (35-45) H 01/27/17 03:59 ABG pO2 105 mmHg (85-104) H 01/27/17 03:59 ABG O2 Saturation 98 % (95-98) 01/27/17 03:59 Abnormal lab findings: Abnormal lab results WBC 14.3 K/mcL (4.3-11.1) H 01/27/17 05:31 Hgb 12.7 g/dL (12.9-16.9) L 01/27/17 05:31 Neutrophils # 11.7 K/mcL (1.6-8.9) H 01/27/17 05:31 ABG pCO2 50 mmHg (35-45) H 01/27/17 03:59 ABG pO2 105 mmHg (85-104) H 01/27/17 03:59 ABG HCO3 32 mEq/L (21-27) H 01/27/17 03:59 ABG Total CO2 33 mEq/L (20-26) H 01/27/17 03:59 ABG Base Excess 6 mEq/L (-2 to 3) H 01/27/17 03:59 BUN 7 mg/dL (8-26) L 01/27/17 05:31 POC Glucose 122 (58-89) H 01/26/17 07:39 Calcium 8.2 mg/dL (8.6-10.8) L 01/27/17 05:31 Serum Total Protein 5.9 g/dL (6.0-8.3) L D 01/27/17 05:31 Albumin 2.8 g/dL (3.5-5.0) L 01/27/17 05:31 Albumin/Globulin Ratio 0.9 (1.1-2.2) L 01/27/17 05:31 Salicylates < 5.0 mg/dL (15.0-30.0) L 01/26/17 04:41 Urine Opiates Screen Positive ng/mL (Xylmrb=274) H 01/26/17 04:40 Acetaminophen < 1.0 mcg/mL (10-30) L 01/26/17 04:41 Ur Amphetamines Screen Positive ng/mL (Yxbnlz=3854) H 01/26/17 04:40 U Benzodiazepines Scrn Positive ng/mL (Xgzwve=832) H 01/26/17 04:40 U Marijuana (THC) Screen Positive ng/mL (Cutoff = 50) H 01/26/17 04:40 - Clinical Findings Intake & Output: Intake & Output 01/26/17 01/27/17 01/27/17 23:59 07:59 15:59 Intake Total 2330 / 2330 1487.6 / 1487.6 256 / 256 Output Total 400 / 400 675 / 675 625 / 625 Balance 0 / 193 812.6 / 812.6 -369 / -369 Weight 71.7 kg - Attending Attestation I examined this patient and my medical decision-making was reviewed with the Resident Physician. I agree with the documented findings, disposition and treatment plan as described except to the extent set forth below. Patient seen and examined. Labs, radiology, chart personally reviewed. 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 Patient did very good on spontaneous breathing trial and he was extubated successfully then transferred to the floor. Cardiovascular: stable Patient was advised to avoid any behaviors that put and affect potentially his life and stop using illicit drugs.
--- NOTE | 2017-01-27 16:43 | Event Note ---
Date of Encounter: 01/27/17 Time of Encounter: 16:41 Patient is seen and evaluated at bedside with family Just extubated today 01/27 and transferred from ICU Admitted s/p polysubstance abuse-THC,Meth, Opiates, benzos (buys off the street) Asking when he could be released and "something" for anxiety Also complaining of sore-throat Will give supportive care for possible withdrawal./Lozenges for sore throat, eating lunch at time of review
[2017-01-28] MEDS: CeFAZolin Premix DUPLEX 2,000 MG/50 ML BAG IVPB SCH ×2 (01:29→07:21)
[2017-01-28 05:22] LABS: Basophils # 0.1 K/mcL (0.0-0.2); Basophils % 0.3 %; Eosinophils # 0.1 K/mcL (0.0-0.6); Eosinophils % 0.6 %; Hematocrit 38.9 % (37.5-50.1); Hemoglobin 12.8 g/dL (12.9-16.9); Immature Granulocytes % 0.4 % (0-4); Lymphocytes # 2.6 K/mcL (0.6-4.6); Mean Corpuscular HGB Conc 32.9 g/dL (31.6-35.5); Mean Corpuscular Hemoglobin 29.8 pg (28.0-33.3); Mean Corpuscular Volume 90.5 fL (83.0-100.0); Mean Platelet Volume 10.5 fL (9.4-12.4); Monocytes # 0.7 K/mcL (0.0-1.3); Monocytes % 4.4 %; Platelet Count 272 K/mcL (140-400); Red Cell Distribution Width 13.9 % (11.5-14.5); Segmented Neutrophils % 77.3 %
[2017-01-28 05:36] LABS: BUN/Creatinine Ratio 10 (6-26); Blood Urea Nitrogen 8 mg/dL (8-26); Calcium 8.7 mg/dL (8.6-10.8); Carbon Dioxide 30 mEq/L (19-29); Chloride 105 mEq/L (98-109); Glucose 103 mg/dL (70-99); Osmolality,Calculated 295 (280-300); Potassium 4.2 mEq/L (3.5-4.5); Sodium 143 mEq/L (136-145); eGFR For African Americans > 60 (> 60); eGFR For Non-African Americans > 60 (> 60)
[2017-01-28] MEDS: 0.9 % Sodium Chloride 1,000 ML IVC SCH ×2 (06:27→16:28)
[2017-01-28] MEDS: Clindamycin 600 MG/50 ML 600 MG/50 ML IV.SOLN IVPB SCH ×2 (08:29→16:28)
--- NOTE | 2017-01-28 09:33 | Internal Med Progress Note ---
Date of Encounter: 01/28/17 Time of Encounter: 09:30 - Assessment and plan (1) Cellulitis Current Visit: Yes Status: Acute Assessment and plan: Mild, d/c cefazolin, change to clindamycin Qualifiers: Site of cellulitis: extremity Site of cellulitis of extremity: upper extremity Laterality: left Qualified Code(s): L03.114 - Cellulitis of left upper limb (2) Acute encephalopathy Current Visit: Yes Status: Resolved Assessment and plan: Resolved (3) Acute respiratory failure Current Visit: Yes Status: Resolved Assessment and plan: Resolved, no O2 requirement since extbation 01/27 Qualifiers: Respiratory failure complication: hypoxia and hypercapnia Qualified Code(s) : J96.01 - Acute respiratory failure with hypoxia; J96.02 - Acute respiratory failure with hypercapnia; J96.02 - Acute respiratory failure with hypercapnia; J96.02 - Acute respiratory failure with hypercapnia (4) Polysubstance abuse Current Visit: Yes Status: Acute Assessment and plan: SW eval , supportive care for withdrawal (5) Leukocytosis Current Visit: Yes Status: Acute Assessment and plan: Etiology unclear NO fever, has cellulitis, which is very mild No Urinary or chest symptoms CXR X2 has been normal with no infiltrates Continue to monitor Qualifiers: Leukocytosis type: unspecified Qualified Code(s): D72.829 - Elevated white blood cell count, unspecified - Subjective Interval history: 31 M admitted to the ICu for acute encephalopathy due to polysubstance abuse, Acute hypoxic and hypercapneic respiratory failure He is seen and evaluated at bedside He was also on antibiotics for cellulitis Denies new complains - Constitutional Vitals: Temp Pulse Resp BP Pulse Ox 98.8 F 81 14 127/75 95 01/28/17 04:43 01/28/17 04:43 01/28/17 04:43 01/28/17 04:43 01/28/17 04:43 General appearance: Present: A&O X 3, pleasant, no acute distress - Head Head exam: Present: atraumatic, normocephalic - Eye Eye exam: Present: PERRL, conjuntiva pink, sclera anicteric Pupils: Present: PERRL - Neck Neck exam general surgery: Present: supple, trachea midline. Absent: lymphadenopathy - Respiratory Respiratory exam: Present: CTAB. Absent: accessory muscle use, rales, rhonchi, wheezes - Cardiovascular Cardiovascular exam: Present: RRR, +S1, +S2. Absent: diastolic murmur, gallop, rubs, systolic murmur - GI/Abdominal GI/Abdominal exam: Present: normal bowel sounds, soft, no peritoneal signs. Absent: distended, tenderness - Extremities Exam Additional comments: MIld erythema on Left antecubital fossa, no differential warmth or tenderness. NO abscess collection - Neurological Exam Neurological exam: Present: alert, CN II-XII intact, oriented X3, no focal deficits. Absent: pronater drift, facial droop, speech deficit - Skin Skin exam: Present: dry, intact Internal Medicine: Result - Labs CBC & Chem 7: 01/28/17 04:38 01/28/17 04:38 Labs: Short CBC 01/28/17 Range/Units 04:38 WBC 15.5 H (4.3-11.1) K/mcL Hgb 12.8 L (12.9-16.9) g/dL Hct 38.9 (37.5-50.1) % Plt Count 272 (140-400) K/mcL Neutrophils # 12.0 H (1.6-8.9) K/mcL BMP 01/28/17 04:38 Sodium 143 Potassium 4.2 Chloride 105 Carbon Dioxide 30 H BUN 8 Creatinine 0.80 Glucose 103 H Calcium 8.7 - ABG Interpretation ABG results: ABG ABG pH 7.41 pH Units (7.32-7.45) 01/27/17 03:59 ABG pCO2 50 mmHg (35-45) H 01/27/17 03:59 ABG pO2 105 mmHg (85-104) H 01/27/17 03:59 ABG O2 Saturation 98 % (95-98) 01/27/17 03:59 - VTE Documentation of Mechanical Device: Intermittent pneumatic compression device Consult Discharge Plan - Plan Referrals: NONE,PCP [Primary Care Provider] -
[2017-01-29] MEDS: Clindamycin 600 MG/50 ML 600 MG/50 ML IV.SOLN IVPB SCH ×4 (01:08→23:33)
[2017-01-29] MEDS: 0.9 % Sodium Chloride 1,000 ML IVC SCH ×2 (03:06→16:40)
[2017-01-29 05:51] LABS: Basophils # 0.1 K/mcL (0.0-0.2); Basophils % 0.3 %; Eosinophils # 0.1 K/mcL (0.0-0.6); Eosinophils % 0.5 %; Hematocrit 40.3 % (37.5-50.1); Hemoglobin 12.9 g/dL (12.9-16.9); Immature Granulocytes % 0.3 % (0-4); Lymphocytes # 3.5 K/mcL (0.6-4.6); Lymphocytes % 20.4 %; Mean Corpuscular Hemoglobin 28.7 pg (28.0-33.3); Mean Corpuscular Volume 89.8 fL (83.0-100.0); Mean Platelet Volume 10.8 fL (9.4-12.4); Monocytes # 0.7 K/mcL (0.0-1.3); Neutrophils # 12.9 K/mcL (1.6-8.9); Platelet Count 300 K/mcL (140-400); Red Blood Count 4.49 M/mcL (4.19-5.50); Red Cell Distribution Width 13.8 % (11.5-14.5); Segmented Neutrophils % 74.5 %
[2017-01-29 11:59] LABS: Bilirubin,Urine Negative (Negative); Blood,Urine Negative (Negative); Clarity,Urine Cloudy (Clear); Color,Urine Yellow (Yellow); Glucose,Urine (UA) Normal (Normal); Ketones,Urine Negative (Negative); Leukocyte Esterase,Urine Negative (Negative); Nitrite,Urine Negative (Negative); Protein,Urine Negative (Neg-Trace); Specific Gravity,Urine 1.023 (1.010-1.025); Urobilinogen,Urine Normal (Normal)
[2017-01-29 12:01] LABS: Bacteria,Urine None Seen per hpf (None-Few); Hyaline Casts,Urine None Seen per lpf (None-Few); RBC,Urine 0-3 per hpf (0-3); Squamous Epithelial Cell,Urine Few per lpf (None-Few); WBC,Urine 0-3 per hpf (0-3)
--- NOTE | 2017-01-29 12:12 | Internal Med Progress Note ---
Date of Encounter: 01/29/17 Time of Encounter: 12:10 - Assessment and plan (1) Cellulitis Current Visit: Yes Status: Acute Assessment and plan: Mild,continue clindamycin Qualifiers: Site of cellulitis: extremity Site of cellulitis of extremity: upper extremity Laterality: left Qualified Code(s): L03.114 - Cellulitis of left upper limb (2) Acute encephalopathy Current Visit: Yes Status: Resolved Assessment and plan: Toxic, due to polysubstance abuse Resolved (3) Acute respiratory failure Current Visit: Yes Status: Resolved Assessment and plan: Resolved, no O2 requirement since extbation 01/27 Qualifiers: Respiratory failure complication: hypoxia and hypercapnia Qualified Code(s) : J96.01 - Acute respiratory failure with hypoxia; J96.02 - Acute respiratory failure with hypercapnia; J96.02 - Acute respiratory failure with hypercapnia; J96.02 - Acute respiratory failure with hypercapnia (4) Polysubstance abuse Current Visit: Yes Status: Acute Assessment and plan: SW eval , supportive care for withdrawal (5) Leukocytosis Current Visit: Yes Status: Acute Assessment and plan: Etiology unclear NO fever, has cellulitis, which is very mild No Urinary or chest symptoms CXR X3 has been normal with no infiltrates UA is negative Give IVF, possible dehydration, check blood culture Continue to monitor Qualifiers: Leukocytosis type: unspecified Qualified Code(s): D72.829 - Elevated white blood cell count, unspecified - Subjective Interval history: 31 M admitted to the ICu for acute encephalopathy due to polysubstance abuse, Acute hypoxic and hypercapneic respiratory failure He is seen and evaluated at bedside He was also on antibiotics for cellulitis Denies new complains Patient continues to have worsening leukocytosis , no focal point of infection noted, afebrile Ordered sepsis work up-CXR unremarkable, UA is unremarkable, blood and urine cultures pending - Constitutional Vitals: Temp Pulse Resp BP Pulse Ox 98.9 F 91 16 127/77 97 01/29/17 10:29 01/29/17 10:29 01/29/17 10:29 01/29/17 10:29 01/29/17 10:29 General appearance: Present: A&O X 3, pleasant, no acute distress - Head Head exam: Present: atraumatic, normocephalic - Eye Eye exam: Present: PERRL, conjuntiva pink, sclera anicteric Pupils: Present: PERRL - Neck Neck exam general surgery: Present: supple, trachea midline. Absent: lymphadenopathy - Respiratory Respiratory exam: Present: CTAB. Absent: accessory muscle use, rales, rhonchi, wheezes - Cardiovascular Cardiovascular exam: Present: RRR, +S1, +S2. Absent: diastolic murmur, gallop, rubs, systolic murmur - GI/Abdominal GI/Abdominal exam: Present: normal bowel sounds, soft, no peritoneal signs. Absent: distended, tenderness - Extremities Exam Extremities exam: Present: warm, radial pulses palpable and symmetrical. Absent : calf tenderness, cyanotic, pedal edema - Neurological Exam Neurological exam: Present: alert, CN II-XII intact, oriented X3, no focal deficits. Absent: pronater drift, facial droop, speech deficit - Skin Skin exam: Present: dry, intact Internal Medicine: Result - Labs CBC & Chem 7: 01/29/17 04:03 01/28/17 04:38 Labs: Short CBC 01/29/17 Range/Units 04:03 WBC 17.3 H (4.3-11.1) K/mcL Hgb 12.9 (12.9-16.9) g/dL Hct 40.3 (37.5-50.1) % Plt Count 300 (140-400) K/mcL Neutrophils # 12.9 H (1.6-8.9) K/mcL Urine 01/29/17 Range/Units 11:47 Urine Color Yellow (Yellow) Urine Clarity Cloudy A (Clear) Urine pH 7.0 (5.0-8.0) pH Units Ur Specific [place] 1.023 (1.010-1.025) Urine Protein Negative (Neg-Trace) mg/dL Urine Glucose (UA) Normal (Normal) mg/dL - ABG Interpretation ABG results: ABG ABG pH 7.41 pH Units (7.32-7.45) 01/27/17 03:59 ABG pCO2 50 mmHg (35-45) H 01/27/17 03:59 ABG pO2 105 mmHg (85-104) H 01/27/17 03:59 ABG O2 Saturation 98 % (95-98) 01/27/17 03:59 - Impressions Impressions Chest X-Ray 01/29/17 07:44 IMPRESSION: No acute cardiopulmonary process is identified. The lungs appear clear. D/ / Antonio Tobar MD / Antonio Tobar MD Interpreting Provider: Antonio Tobar MD - VTE Documentation of Mechanical Device: Intermittent pneumatic compression device Consult Discharge Plan - Plan Referrals: NONE,PCP [Primary Care Provider] -
[2017-01-29 12:13] LABS: Amorphous Sediment,Urine Few (Few)
[2017-01-29] MEDS: ceFAZolin 2,000 MG in Water for inj. (sterile) 20 ML IVP SCH (19:37)
[2017-01-29] MEDS: CeFAZolin Premix DUPLEX 2,000 MG/50 ML BAG IVPB SCH (19:37)
[2017-01-29] MEDS ORDERED: Magic Mouthwash 10 ML UD Cup PO PRN (22:07)
[2017-01-30] MEDS: 0.9 % Sodium Chloride 1,000 ML IVC SCH ×2 (04:40→05:54)
[2017-01-30 06:40] LABS: BUN/Creatinine Ratio 15 (6-26); Blood Urea Nitrogen 12 mg/dL (8-26); Calcium 8.4 mg/dL (8.6-10.8); Carbon Dioxide 26 mEq/L (19-29); Chloride 105 mEq/L (98-109); Glucose 130 mg/dL (70-99); Osmolality,Calculated 292 (280-300); Potassium 3.8 mEq/L (3.5-4.5); Sodium 140 mEq/L (136-145); eGFR For African Americans > 60 (> 60); eGFR For Non-African Americans > 60 (> 60)
[2017-01-30 06:42] LABS: Basophils # 0.1 K/mcL (0.0-0.2); Basophils % 0.7 %; Eosinophils # 0.2 K/mcL (0.0-0.6); Eosinophils % 2.4 %; Hematocrit 38.6 % (37.5-50.1); Hemoglobin 12.6 g/dL (12.9-16.9); Immature Granulocytes % 0.1 % (0-4); Lymphocytes # 2.8 K/mcL (0.6-4.6); Lymphocytes % 34.1 %; Mean Corpuscular HGB Conc 32.6 g/dL (31.6-35.5); Mean Corpuscular Hemoglobin 29.5 pg (28.0-33.3); Mean Corpuscular Volume 90.4 fL (83.0-100.0); Mean Platelet Volume 10.6 fL (9.4-12.4); Monocytes # 0.5 K/mcL (0.0-1.3); Monocytes % 5.7 %; Neutrophils # 4.6 K/mcL (1.6-8.9); Platelet Count 276 K/mcL (140-400); Red Blood Count 4.27 M/mcL (4.19-5.50); Red Cell Distribution Width 13.6 % (11.5-14.5)
[2017-01-30] MEDS: Clindamycin 600 MG/50 ML 600 MG/50 ML IV.SOLN IVPB SCH (09:55)
[2017-01-30 10:36] VITALS: BP 110/65
--- NOTE | 2017-01-30 10:58 | Discharge Summary ---
Date of Encounter: 01/30/17 Time of Encounter: 10:55 - Discharge Medications Home Medications: Unable To Obtain [Unable to Obtain] 01/26/17 [History] Allergies/Adverse Reactions: 3 Allergy/AdvReac Type Severity Reaction Status Date / Time No Known Drug Allergies Allergy See Verified 01/27/17 09:36 Comments Date of admission: 01/26/17 12:43 Primary care physician: PCP NONE Consults: 01/28/17 09:32 Consult to [facility] [CONS] Routine Reason for SW Consult: Polysubstances abuse, resources for rehab - Patient Status Disposition: Home, Self-Care Condition: Fair Overall status at discharge: patient is back to baseline - Discharge Instructions Follow Up With: [facility] [Outside] - 02/06/17 8:45 am - Diet and Activity Activity: resume usual activities as tolerated Diet: regular diet Hospital course: Mr. Pantoja is a 31 year old male male without known PMH who was sent to [place] ED for altered mental status. In ED, patient was noted to be agitated and combative with tachycardia. Multiple rounds of sedatives were given but patient continued to have episodes of agitation and fighting behavior. Patient was noted to have O2 sat drop to mid 80s on 6L oxygen and eventually intubated in ED. Per ED note, patient was found to be unresponsive initially but became very agitative and combative after squad gave 4 mg of Narcan. 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 Patient reportedly took Xanax, gabapentin and IV heroin. Urine drug screening positive for opiates , amphetamines, benzodiazepam and marijuana. He was eventually extubated and was stable condition. There is believed that most of his issues stem from substance abuse. He was counseled. 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 He was discharged on 1219 - Time Spent with Patient Total time spent providing and/or coordinating discharge services: - Constitutional Vitals: Temp Pulse Resp BP Pulse Ox 98.5 F 89 16 110/65 97 01/30/17 10:34 01/30/17 10:34 01/30/17 10:34 01/30/17 10:34 01/30/17 10:34 General appearance: Present: A&O X 3, pleasant, no acute distress Exam: GEN: NAD CVS: RRR. S1, S2, No m/r/g RESP: CTAB ABD: Soft, NT, ND, +BS EXT: No edema. 2+ DP, No rashes NEURO: Nonfocal - VTE Documentation of Mechanical Device: Intermittent pneumatic compression device
== END 2017-01-30 13:31 | disposition home or self-care (01) | DRG 917 ==
LOC: EMEROO 04:29 → ICNU 04:29 → SUATTDRO 12:43 → 3ANU 01-27 09:59
PROVIDERS: ADMIT Family Medicine; ATTEND Internal Medicine